=== PATIENT | male | born 1955 ===

== ENCOUNTER 2021-07-02 08:52 | Emergency (ER) | payer MEDICARE ==
[2021-07-02] MEDS ORDERED: IPRATROPIUM 0.02% NEBU 2.5 ML IH ONE (13:09)
[2021-07-02] MEDS ORDERED: SODIUM CHLORIDE 0.9% 500 ML 500 ML IV ONE (13:09)
[2021-07-02] MEDS ORDERED: ALBUTEROL 2.5 MG/3 ML NEBU IH ONE (13:09)
--- NOTE | 2021-07-02 13:10 | Emergency Department Report ---
ED General Adult HPI - General Chief complaint: Dyspnea/Respdistress Stated complaint: JORGE PUI?: Yes Time Seen by Provider: 07/02/21 12:46 Source: patient, EMS ( EMS documentation not available at time of chart dictation ), RN notes reviewed Mode of arrival: Ambulatory Limitations: No Limitations - History of Present Illness Initial comments: The patient was evaluated in the emergency department for symptoms described in the history of present illness. He/she was evaluated in the context of the global COVID-19 pandemic, which necessitated consideration that the patient might be at risk for infection with the virus that causes COVID-19. Institutional protocols and algorithms that pertain to the evaluation of patients at risk for COVID-19 are in a state of rapid change based on information released by regulatory bodies including the CDC and federal and state organizations. These policies and algorithms were followed during the patient's care in the emergency department. Please note that these policies, procedures and recommendations changed on a rapid basis. The patient is a 65-year-old gentleman, who typically follows at the [facility]. He has a history of COPD, he is not on home oxygen, and he was diagnosed with COVID-19 last week. Today is day 7 of COVID-19. He presents to the ER today with a complaint of "I ran out of my breathing treatment." He was feeling short of breath, and called 911. EMS reportedly administered steroids, magnesium, and albuterol therapy to this patient. He states that he feels improved. He currently denies headache, neck pain, chest pain, abdominal pain, vomiting, diaphoresis, leg pain, leg swelling, travel, surgery, immobilization, bright red blood per rectum. He still feels little bit short of breath secondary to his COVID. However, he f eels "much better than when I came in." -: Gradual, days(s) Severity scale (0 -10): 0 Consistency: other (Symptoms are improving) Improves with: medication, rest Worsens with: other (Physical exertion) - Related Data Previous Rx's Medication Instructions Recorded Last Taken Type Albuterol Sulfate [Albuterol 0.63% 0.63 mg IH Q4HR PRN #2 ml 07/02/21 Unknown Rx NEBS] Albuterol Sulfate [Proair 90 mcg IH Q4HR PRN #2 aer.pow.ba 07/02/21 Unknown Rx Respiclick] Benzonatate [Tessalon Perles] 100 mg PO Q8HR PRN #30 capsule 07/02/21 Unknown Rx DOXYCYCLINE Hyclate [Vibramycin] 100 mg PO Q12HR #10 capsule 07/02/21 Unknown Rx Ipratropium (Nf) [Atrovent] 2 puff IH Q6HR PRN #1 inha 07/02/21 Unknown Rx Ipratropium [Atrovent NEB] 0.5 mg IH Q4HR #2 ml 07/02/21 Unknown Rx predniSONE [Deltasone] 40 mg PO QDAY #8 tab 07/02/21 Unknown Rx Allergies Allergy/AdvReac Type Severity Reaction Status Date / Time No Known Allergies Allergy Unverified 07/02/21 08:56 ED Review of Systems ROS: Stated complaint: JORGE Other details as noted in HPI Constitutional: denies: fever Eyes: denies: eye discharge ENT: congestion Respiratory: cough, shortness of breath, SOB with exertion, SOB at rest, wheezing Cardiovascular: dyspnea on exertion. denies: chest pain Gastrointestinal: denies: abdominal pain, hematemesis, melena, hematochezia Genitourinary: denies: dysuria Neurological: weakness Hematological/Lymphatic: denies: easy bleeding ED Past Medical Hx - Past Medical History Previous Medical History?: Yes Hx COPD: Yes - Medications Home Medications: Home Medications Medication Instructions Recorded Confirmed Last Taken Type Albuterol Sulfate [Albuterol 0.63% 0.63 mg IH Q4HR PRN #2 ml 07/02/21 Unknown Rx NEBS] Albuterol Sulfate [Proair 90 mcg IH Q4HR PRN #2 aer.pow.ba 07/02/21 Unknown Rx Respiclick] Benzonatate [Tessalon Perles] 100 mg PO Q8HR PRN #30 capsule 07/02/21 Unknown Rx DOXYCYCLINE Hyclate [Vibramycin] 100 mg PO Q12HR #10 capsule 07/02/21 Unknown Rx Ipratropium (Nf) [Atrovent] 2 puff IH Q6HR PRN #1 inha 07/02/21 Unknown Rx Ipratropium [Atrovent NEB] 0.5 mg IH Q4HR #2 ml 07/02/21 Unknown Rx predniSONE [Deltasone] 40 mg PO QDAY #8 tab 07/02/21 Unknown Rx ED Physical Exam - General Limitations: No Limitations General appearance: alert, in no apparent distress - Head Head exam: Present: atraumatic, normocephalic - Eye Eye exam: Present: normal appearance, EOMI. Absent: nystagmus - ENT ENT exam: Present: normal exam, normal orophraynx, mucous membranes moist, normal external ear exam - Neck Neck exam: Present: normal inspection, full ROM. Absent: tenderness, meningi smus - Respiratory Respiratory exam: Present: decreased breath sounds. Absent: respiratory distress, wheezes, rales, rhonchi - Cardiovascular Cardiovascular Exam: Present: normal rhythm, tachycardia, normal heart sounds. Absent: bradycardia, irregular rhythm, systolic murmur, diastolic murmur, rubs, gallop - GI/Abdominal GI/Abdominal exam: Present: soft. Absent: distended, tenderness, guarding, rebound, rigid, pulsatile mass - Rectal Rectal exam: Present: deferred - Extremities Exam Extremities exam: Present: normal inspection, full ROM, other (2+ pulses noted in the bilateral upper and lower extremities. There is no palpable cord. negative Homans sign. Muscular compartments are soft. The pelvis is stable.). Absent: pedal edema, calf tenderness - Back Exam Back exam: Present: normal inspection, full ROM. Absent: tenderness, CVA tenderness (R), CVA tenderness (L), paraspinal tenderness, vertebral tenderness - Neurological Exam Neurological exam: Present: alert, oriented X3, normal gait, other (No facial droop. Tongue midline. Extraocular movements intact bilaterally. Facial sensation intact to light touch in V1, V2, V3 distribution bilaterally. 5 and a 5 strength in 4 extremities. Sensation intact to light touch in 4 extremities.). Absent: motor sensory deficit - Psychiatric Psychiatric exam: Present: anxious - Skin Skin exam: Present: warm, dry, intact, normal color. Absent: rash ED Course Vital Signs 07/02/21 07/02/21 08:53 18:24 Temperature 98.7 F Pulse Rate 100 H 99 H Respiratory 18 16 Rate Blood Pressure 164/102 159/92 [Left] O2 Sat by Pulse 98 98 Oximetry - Reevaluation(s) Reevaluation #1: 07/02/21 14:30 Differential diagnosis, including the not limited to: COPD, pneumonia, bronchitis, COVID-19, pulmonary embolism Assessment and plan: 65-year-old gentleman with a known history of COPD, and recent diagnosis of COVID-19, coming in with improving shortness of breath. On my personal evaluation, patient is not wheezing, not significantly dyspneic, and does not appear to be in any acute distress. I suspect that this patient is experiencing natural history of COVID-19 as well as COPD. On my direct pulse oximeter evaluation, he is saturating at 98, 99% on room air. X-ray the chest unremarkable for acute findings, EKG unremarkable, laboratory studies nonactionable, with exception of elevated D-dimer. Given report of hypoxia, shortness of breath, recent diagnosis of COVID-19, patient at risk for pulmonary embolism, and we will therefore obtain CT angiogram chest to evaluate this question further. Should no PE be present, the patient should be suitable for discharge with management for COPD. He is not hypoxic at this time 07/02/21 19:46 Patient has been observed in this ER for a prolonged period of time. His vital signs remain acceptable at this time. CT scan of the chest was negative for acute findings. Went back to reevaluate the patient, and he reports that his respiratory distress is improved. Patient counseled that this is likely the natural history of COPD, as well as COVID. However, he is saturating well on room air, and is currently watching TV/videos on his cellular phone. Patient suitable for discharge at this time with outpatient follow-up. He is asking for refills on his ventilator/nebulizer ED Medical Decision Making - Lab Data Result diagrams: 07/02/21 13:28 07/02/21 13:28 Vital Signs 07/02/21 08:53 Temperature 98.7 F Pulse Rate 100 H Respiratory 18 Rate Blood Pressure 164/102 [Left] O2 Sat by Pulse 98 Oximetry Lab Results 07/02/21 07/02/21 07/02/21 Range/Units 13:28 13:28 13:28 WBC 5.9 (4.5-11.0) K/mm3 RBC 4.05 (3.65-5.03) M/mm3 Hgb 11.7 L (11.8-15.2) gm/dl Hct 36.1 (35.5-45.6) % MCV 89 (84-94) fl MCH 29 (28-32) pg MCHC 32 (32-34) % RDW 18.8 H (13.2-15.2) % Plt Count 514 H (140-440) K/mm3 Seg Neutrophils % Journeyman Operator Assistant PT 14.1 (12.2-14.9) Sec. INR 0.98 (0.87-1.13) D-Dimer 861.39 H (0-234) ng/mlDDU Sodium 142 (137-145) mmol/L Potassium 4.2 (3.6-5.0) mmol/L Chloride 102.2 (98-107) mmol/L Carbon Dioxide 21 L (22-30) mmol/L Anion Gap 23 mmol/L BUN 17 (9-20) mg/dL Creatinine 1.0 (0.8-1.3) mg/dL Estimated GFR > 60 ml/min BUN/Creatinine Ratio 17 % Glucose 127 H (75-100) mg/dL Calcium 10.1 (8.4-10.2) mg/dL Magnesium 2.50 H (1.7-2.3) mg/dL Troponin T < 0.010 (0.00-0.029) ng/mL - EKG Data -: EKG Interpreted by Pa EKG shows normal: sinus rhythm Rate: tachycardia - EKG Data When compared to previous EKG there are: previous EKG unavailable 07/02/21 14:27 The EKG is interpreted at 13: 02 Sinus rhythm, tachycardia, rate 106 bpm. Left axis deviation, left anterior fascicular block, normal P wave axis, left ventricular hypertrophy, motion artifact, not a STEMI. No prior for comparison peer - Radiology Data Radiology results: pending, report reviewed, image reviewed CHEST 2 VIEWS INDICATION: Dyspnea. COMPARISON: none FINDINGS: Support devices: None. Heart: Within normal limits. Lungs/pleura: The lungs are hyperin flated suggesting underlying emphysematous changes. No acute air space or interstitial disease. No pleural abnormality or pneumothorax. Additional findings: None. IMPRESSION: No acute findings. Hyperinflated lungs. Signer Name: Jose L Briones Jr, MD Signed: 07/02/2021 1:19 PM Workstation Name: [id number] CTA CHEST WITH IV CONTRAST INDICATION: acute dyspnea, covid 19. TECHNIQUE: Axial CT images were obtained through the chest after injection of 100 cc Omnipaque 350 IV contrast. 3 plane MIP reconstructions were produced. All CT scans at this location are performed using CT dose reduction for ALARA by means of automated exposure control. COMPARISON: 2 views of the chest performed toda y. FINDINGS: PULMONARY ARTERIES: No pulmonary emboli. AORTA AND ARTERIES: No acute findings. There is moderate coronary and aortic atherosclerosis with mild great vessel atherosclerosis. HEART: No significant abnormality. LYMPH NODES:No significant adenopathy. TRACHEA AND BRONCHI:No significant abnormality. LUNGS: There is similar hyperexpansion of the lungs. No suspicious consolidation, nodule or mass. No pneumothorax or pleural effusion. ADDITIONAL FINDINGS: None. UPPER ABDOMEN: No acute findings. BONES: No significant osseous abnormality. IMPRESSION: 1. No CT evidence for pulmonary embolism. 2. No acute findings. Signer Name: Jerel Burgos MD Signed: 07/02/2021 4:46 PM Workstation Name: [id number] Critical care attestation.: If time is entered above; I have spent that time in minutes in the direct care of this critically ill patient, excluding procedure time. ED Disposition Clinical Impression: COPD exacerbation, COVID-19, Acute dyspnea Disposition: 01 HOME / SELF CARE / HOMELESS Is pt being admited?: No Does the pt Need Aspirin: No Condition: Good Instructions: Chronic Obstructive Pulmonary Disease (ED), COVID-19 Frequently Asked Questions, Chronic Obstructive Pulmonary Disease, [id number] Additional Instructions: Patient likely experiencing natural history of COVID-19 as well as COPD. Please take the breathing medication as needed and directed, steroids, antibiotics and cough medication as needed and directed. Please follow-up with a primary care doctor or [employer] black belt within the next 7 days for repeat checkup and evaluation. Please return to the emergency room right away with new pain, worsened pain, migration of pain, projectile vomiting, change in mental status, confusion, inability tolerate liquid feeds, new, worsened or different symptoms not present on the initial emergency room evaluation Referrals: SMITH DIAS MD [Staff Physician] - 7-10 days [facility] [Provider Group] - 7-10 days
[2021-07-02 13:47] LABS: Hematocrit 36.1 % (35.5-45.6); Hemoglobin 11.7 gm/dl (11.8-15.2); Mean Corpuscular HGB Conc 32 % (32-34); Mean Corpuscular Volume 89 fl (84-94); Platelet Count 514 K/mm3 (140-440); Red Blood Count 4.05 M/mm3 (3.65-5.03); Red Cell Distribution Width 18.8 % (13.2-15.2)
[2021-07-02 13:56] LABS: INR 0.98 (0.87-1.13)
[2021-07-02 14:13] LABS: BUN/Creatinine Ratio 17; Blood Urea Nitrogen 17 mg/dL (9-20); Calcium 10.1 mg/dL (8.4-10.2); Hemolysis Index 3
--- NOTE | 2021-07-02 14:24 | XRay Report ---
CHEST 2 VIEWS INDICATION: Dyspnea. COMPARISON: none FINDINGS: Support devices: None. Heart: Within normal limits. Lungs/pleura: The lungs are hyperinflated suggesting underlying emphysematous changes. No acute air s pace or interstitial disease. No pleural abnormality or pneumothorax. Additional findings: None. IMPRESSION: No acute findings. Hyperinflated lungs. Signer Name: Jose L Briones Jr, MD Signed: 07/02/2021 2:19 PM Workstation Name: [id number]
[2021-07-02 15:00] LABS: Basophils % (Manual) 0 % (0.0-1.8); Eosinophils % (Manual) 0 % (0.0-4.3); Monocytes % (Manual) 0 % (0.0-7.3); Total Cells Counted 100
[2021-07-02 15:01] LABS: Platelet Estimate Consistent w Auto; RBC Morphology Normal
--- NOTE | 2021-07-02 17:50 | Cat Scan Report ---
CTA CHEST WITH IV CONTRAST INDICATION: acute dyspnea, covid 19. TECHNIQUE: Axial CT images were obtained through the chest after injection of 100 cc Omnipaque 350 IV contrast. 3 plane MIP reconstructions were produced. All CT scans at this location are performed using CT dose reduction for ALARA by means of automated exposure control. COMPARISON: 2 views of the chest performed today. FINDINGS: PULMONARY ARTERIES: No pulmonary emboli. AORTA AND ARTERIES: No acute findings. There is moderate coronary and aortic atherosclerosis with mil d great vessel atherosclerosis. HEART: No significant abnormality. LYMPH NODES:No significant adenopathy. TRACHEA AND BRONCHI:No significant abnormality. LUNGS: There is similar hyperexpansion of the lungs. No suspicious consolidation, nodule or mass. No pneumothorax or pleural effusion. ADDITIONAL FINDINGS: None. UPPER ABDOMEN: No acute findings. BONES: No significant osseous abnormality. IMPRESSION: 1. No CT evidence for pulmonary embolism. 2. No acute findings. Signer Name: Jerel Burgos MD Signed: 07/02/2021 5:46 PM Workstation Name: [id number]
[2021-07-02 18:25] VITALS: BP 159/92
[2021-07-02] MEDS ORDERED: MAGNESIUM SULFATE 4 GM/100 ML BAG IV ONE (18:27)
== END 2021-07-02 20:30 | disposition home or self-care (01) ==
LOC: ED 08:52
DX: U07.1 COVID-19 (principal); J44.1 Chronic obstructive pulmonary disease with (acute) exacerbation; R06.00 Dyspnea, unspecified; Z79.899 Other long term (current) drug therapy
CPT/HCPCS: 36415; 71046; 71275; 80048; 83735; 84484; 85007; 85025; 85379; 85610; 93005; 94640; 99285; J3475; J7040; Q9967